=== PATIENT | female | born 1970 | race Caucasian/White ===

== ENCOUNTER → 2024-02-20 12:30 | Outpatient (REF) | payer OTHER, SELFPAY | LOC: HWWDC 12:30 | PROVIDERS: ATTENDING PHYSICIAN Physician Assistant Medical | DX: Z12.31 Encounter for screening mammogram for malignant neoplasm of breast (principal) | CPT/HCPCS: 77063; 77067 ==

== ENCOUNTER → 2024-08-20 15:50 | Outpatient (REF) | payer OTHER, SELFPAY | LOC: HWRAD 15:50 | PROVIDERS: ATTENDING PHYSICIAN Physician Assistant Medical | DX: Z00.00 Encounter for general adult medical examination without abnormal findings (principal) | CPT/HCPCS: 73030 ==

== ENCOUNTER 2024-12-04 17:15 | Outpatient (RCR) | payer OTHER, SELFPAY | END 2024-12-04 23:59 | disposition home or self-care (01) | LOC: RPT 17:15 | PROVIDERS: ATTENDING PHYSICIAN Physician Assistant Medical | DX: M25.512 Pain in left shoulder (principal); Z73.6 Limitation of activities due to disability | CPT/HCPCS: 97110; 97112; 97140; 97161 ==

== ENCOUNTER → 2025-01-29 18:28 | Outpatient (REF) | payer OTHER, SELFPAY | LOC: PAVMRI 18:28 | PROVIDERS: ATTENDING PHYSICIAN Physician Assistant Surgical; FAMILY PHYSICIAN Physician Assistant Medical | DX: M25.512 Pain in left shoulder (principal) | CPT/HCPCS: 73221 ==

== ENCOUNTER → 2025-03-04 07:36 | Outpatient (REF) | payer OTHER, SELFPAY | LOC: HWRAD 07:36 | PROVIDERS: ATTENDING PHYSICIAN Physician Assistant Medical | DX: R11.2 Nausea with vomiting, unspecified (principal) | CPT/HCPCS: 76700 ==